=== PATIENT | female | born 1985 | race Caucasian/White ===

== ENCOUNTER 2020-02-06 14:39 | Emergency (ER) | payer OTHER ==
[~2020-02-06] VITALS: Ht 157.5 cm; Wt 83.9 kg
[2020-02-06 14:46] VITALS: BP 121/52
[2020-02-06] MEDS ORDERED: LIDOCAINE /MPF 1% VIAL 5 ML VIAL ONE (16:06)
[2020-02-06] MEDS ORDERED: HYDROCODONE/APAP 5/325MG TABLET PO ONE (16:30)
[2020-02-06] MEDS ORDERED: LIDOCAINE HCL/PF 1% 30 ML VIAL TP ONE (16:30)
[2020-02-06] MEDS ORDERED: ONDANSETRON 4 MG TAB.RAPDIS SL ONE (16:30)
[2020-02-06] MEDS ORDERED: GELATIN SPONGE,ABSORBABLE 1 SPONGE SPONGE TP ONE (16:56)
--- NOTE | 2020-02-06 17:18 | NUR ---
FOREIGN HAYES REPAIRED RT RING FINGER LAC WITH SUTURES. PT ELIESER WELL. APPLIED DRESSING ON RT MIDDLE & RT RING FINGER, NO ACTIVE BLEEDING NOTED UPON LEAVING ED.
== END 2020-02-06 17:20 | disposition home or self-care (01) ==
LOC: ER 14:39
DX: S61.214A Laceration without foreign body of right ring finger without damage to nail, initial encounter (principal); S61.212A Laceration without foreign body of right middle finger without damage to nail, initial encounter; Z90.89 Acquired absence of other organs; X58.XXXA Exposure to other specified factors, initial encounter; Y93.89 Activity, other specified; Y92.89 Other specified places as the place of occurrence of the external cause; Y99.8 Other external cause status
CPT/HCPCS: 12001; 99282; A6403; J3490 ×2

== ENCOUNTER 2020-02-08 14:39 | Emergency (ER) | payer OTHER ==
[~2020-02-08] VITALS: Ht 167.6 cm; Wt 75.7 kg
[2020-02-08 14:54] VITALS: BP 130/81
--- NOTE | 2020-02-08 15:54 | NUR ---
Patient discharged to home in stable condition. verbal after care instructions given by Dr. Patterson. Patient verbalizes understanding of instruction. Patient does not want to wait for the paperwork.
== END 2020-02-08 15:56 | disposition home or self-care (01) ==
LOC: ER 14:44
DX: S61.212D Laceration without foreign body of right middle finger without damage to nail, subsequent encounter (principal); S61.214D Laceration without foreign body of right ring finger without damage to nail, subsequent encounter; X58.XXXD Exposure to other specified factors, subsequent encounter

== ENCOUNTER 2020-02-16 12:01 | Emergency (ER) | payer OTHER ==
[~2020-02-16] VITALS: Ht 167.6 cm; Wt 75.3 kg
[2020-02-16 12:09] VITALS: BP 134/79
--- NOTE | 2020-02-16 12:39 | NUR ---
SEEN BY MD WITH ORDER TO DO SUTURE REMOVAL. NOTED
== END 2020-02-16 13:00 | disposition home or self-care (01) ==
LOC: ER 12:02
DX: S61.210D Laceration without foreign body of right index finger without damage to nail, subsequent encounter (principal); W26.0XXD Contact with knife, subsequent encounter

== ENCOUNTER 2024-07-24 09:57 | Emergency (ER) | payer OTHER ==
[~2024-07-24] VITALS: Ht 157.5 cm; Wt 86.2 kg
[2024-07-24 10:18] VITALS: BP 124/60; TEMP 98; O2SAT 98
== END 2024-07-24 10:19 | disposition home or self-care (01) ==
LOC: ER 10:14
DX: S61.012A Laceration without foreign body of left thumb without damage to nail, initial encounter (principal); W26.0XXA Contact with knife, initial encounter; Y93.89 Activity, other specified; Y92.89 Other specified places as the place of occurrence of the external cause; Y99.0 Civilian activity done for income or pay